=== PATIENT | male | born 1990 | race Two or more races ===

== ENCOUNTER 2017-05-18 18:59 | Emergency (ER) | payer MEDICAID ==
[~2017-05-18] VITALS: Ht 180.3 cm; Wt 59.0 kg
[~2017-05-18 18:59] MED LIST: CITA20TA3 GT; DIVA500T53 PO; TRAZADONE; [UNRECOGNIZED DRUG - CODE]
[2017-05-18 19:48] LABS: Urine RBC None Seen /hpf (0 - 3)
[2017-05-18 19:54] LABS: Basophils # (auto) 0 uL; Basophils % (auto) 0.6 % (0.0-2.0); Eosinophils # (auto) 0.1 uL; Eosinophils % (auto) 1.2 % (0.0-7.0); Hematocrit 49.1 % (41.0-53.0); Hemoglobin 16.8 g/dL (13.5-17.5); Lymphocytes # (auto) 1.6 uL; Lymphocytes % (auto) 22.9 % (10.0-50.0); Mean Corpuscular Hemoglobin 32.9 pg (28.0-32.0); Mean Corpuscular Hgb Conc. 34.3 g/dL (32.0-36.0); Mean Corpuscular Volume 95.9 fL (80.0-100.0); Mean Platelet Volume 10.5 fL (6.9-10.8); Monocytes # (auto) 0.6 uL; Monocytes % (auto) 9.1 % (0.0-12.0); Neutrophils # (auto) 4.5 uL; Neutrophils % (auto) 66.2 % (37.0-80.0); Nucleated Red Blood Cells % 0.1 %; Platelet Count (auto) 144 10^3/uL (140-450); Red Cell Distribution Width 13.3 % (11.8-14.3); White Blood Cell 6.9 10^3/uL (4.4-10.8)
[2017-05-18 20:05] LABS: Albumin 4.6 g/dL (3.4-5.0); Anion Gap 8 (5-15); Aspartate Aminotransferase 20 U/L (15-37); BUN/Creatinine Ratio 13.5; Blood Urea Nitrogen 12 mg/dL (7-18); Calcium 8.9 mg/dL (8.5-10.1); Carbon Dioxide 30 mmol/L (21-32); Chloride 103 mmol/L (98-107); GFR African American 131 mL/min; GFR Non-African American 108 mL/min; Glucose 114 mg/dL (74-106); Potassium 3.6 mmol/L (3.5-5.1); Sodium 141 mmol/L (136-145)
[2017-05-18 20:05] LABS: Urine Bilirubin Negative (Negative); Urine Blood Negative /uL (Negative); Urine Color Yellow (Yellow); Urine Glucose Normal (Normal); Urine Ketone Negative (Negative); Urine Nitrite Negative (Negative); Urine Squamous Epithelial Cell FEW /hpf (<5); Urine Urobilinogen Normal (Negative); Urine pH 6.5 (5.0-8.0)
[2017-05-18 20:10] LABS: Alkaline Phosphatase 72 U/L (45-117); Bilirubin, Total 1.4 mg/dL (0.2-1.0)
[2017-05-19 05:43] VITALS: BP 106/63
[2017-05-19] MEDS ORDERED: MAGNESIUM CITRATE SOLUTION 300 ML BTL PO ONE (06:30)
== END 2017-05-19 06:52 | disposition home or self-care (01) ==
LOC: ER 19:09
DX: K59.00 Constipation, unspecified (principal); F41.9 Anxiety disorder, unspecified; Z88.8 Allergy status to other drugs, medicaments and biological substances
CPT/HCPCS: 36415; 74176; 80053; 81001; 84484; 85025

== ENCOUNTER 2019-04-13 01:47 | Emergency (ER) | payer MEDICAID ==
[~2019-04-13] VITALS: Ht 180.3 cm; Wt 61.2 kg
[2019-04-13 04:03] VITALS: BP 134/84
[2019-04-13] MEDS ORDERED: BACLOFEN 10 MG TAB PO ONE (04:45)
[2019-04-13] MEDS ORDERED: HYDROcodone-ACET 7.5/325MG TAB PO ONE (04:45)
== END 2019-04-13 05:27 | disposition home or self-care (01) ==
LOC: ER 01:53
DX: M62.838 Other muscle spasm (principal); R51 Headache; F20.0 Paranoid schizophrenia; Z88.8 Allergy status to other drugs, medicaments and biological substances

== ENCOUNTER 2021-01-23 23:22 | Emergency (ER) | payer MEDICAID ==
[~2021-01-23] VITALS: Ht 177.8 cm; Wt 76.2 kg
[~2021-01-23 23:22] MED LIST changes: +DIVA500T2 PO; -DIVA500T53 PO
[2021-01-24 00:12] VITALS: BP 134/87
== END 2021-01-24 05:54 | disposition home or self-care (01) ==
LOC: ER 23:22
DX: M79.10 Myalgia, unspecified site (principal); F41.9 Anxiety disorder, unspecified; Z90.89 Acquired absence of other organs; Z79.899 Other long term (current) drug therapy; Z88.8 Allergy status to other drugs, medicaments and biological substances